=== PATIENT | male | born 1965 | race Caucasian/White ===

== ENCOUNTER 2017-04-11 07:52 | Emergency (ER) | payer OTHER ==
--- NOTE | 2017-04-11 08:41 | DIAGNOSTIC IMAGING REPORT ---
PROCEDURE: XR HAND 3 OR 4 VIEWS - LEFT INDICATION: Nail gun injury. TECHNIQUE: Four views. COMPARISON: None. FINDINGS: Osseous structures and joint spaces are normal. No evidence of fracture or radiopaque foreign body. IMPRESSION: 1. Negative left hand.
--- NOTE | 2017-04-11 08:43 | ED CLINICAL REPORT ---
Clinical Report - Physicians/Mid Levels [facility] [address] [place] [address] 04/11/2017 7:54 Patient: DANETTE DOMINGUEZ Time Seen: 07:59; initial patient contact. Arrived- By private vehicle. Historian- patient. HISTORY OF PRESENT ILLNESS Chief Complaint: Injury to the left hand. The injury happened yesterday. Occurred at home. The patient sustained a puncture wound from a nail. Patient is experiencing moderate pain. Patient denies injury to the head or neck. No other injury. REVIEW OF SYSTEMS The patient sustained a laceration. He has had swelling. No tingling, numbness, weakness or foreign body. All systems otherwise negative, except as recorded above. PAST HISTORY Sprain. Tetanus Status. Cellulitis. Dental Pain. Abscess. SURGERIES: Lumpectomy . The patient's dominant hand is the right. Last tetanus immunization was more than 5 years ago. SOCIAL HISTORY Current every day smoker. Regular alcohol use. No drug use. ADDITIONAL NOTES The nursing notes have been reviewed. PHYSICAL EXAM Vital Signs: 04/11/2017 08:00 BP: 137/87. HR: 84. RR: 18. O2 saturation: 95%. Temp: 98.8 F. Have been reviewed as normal. Skin: Skin warm and dry. Single deep crusted puncture wound with erythema and tenderness on the left hand. No increased warmth. Extremities: Dorsal left hand: mild erythema, tenderness and swelling and single puncture wound of the distal and radial aspect of the dorsal hand. Neurovascular intact distally. No deformity. No limitation of extension. No wrist injury. Hand and wrist exam otherwise negative. Extremities otherwise negative. Neuro, Vascular and Tendons: Vascular status intact. Sensation intact. Motor intact. Tendon function intact. Neuro: Oriented X 3. No motor deficit. No sensory deficit. LABS, X-RAYS, AND EKG Lt Hand X-ray: No fracture. Normal alignment. No bony lesion, air in the soft tissue or foreign body. Soft tissues normal. Views: AP, lateral and oblique. Technique: good. The X-rays were independently viewed by me and interpreted contemporaneously by me. Prior films were not available for comparison. Interpretation time: 08:43. PROGRESS AND PROCEDURES Disposition: Discharged home in good and improved condition. Condition: good. CLINICAL IMPRESSION Single deep puncture wound to the left hand. Delayed treatment. No puncture wound with foreign body present or infected puncture wound. Not penetrating into body cavity. INSTRUCTIONS Limit use of your left hand until better. Warnings: TETANUS: You were given a tetanus shot during your visit. Make a note for future reference. GENERAL WARNINGS: Return or contact your physician immediately if your condition worsens or changes unexpectedly, if not improving as expected, or if other problems arise. Specifically return if fever. Your Current Medications: CONTINUE TAKING THE FOLLOWING MEDICATIONS: Albuterol-Ipratropium Inhalation : 2 puffs TID. Hydrocodone-Acetaminophen Oral : Tablet 10-325 mg, 4x a day, prn. Ranitidine HCl Oral. Topamax Oral : 25mg TID. Prescription Medications: Cephalexin 500 mg: take 1 capsule orally every 6 hours for 7 days. No refill. Follow-up: Follow up with your doctor in about two days. Call for an appointment. Screening today revealed the patient's blood pressure to be in the pre-hypertensive range. The patient should follow up with a primary care provider for blood pressure management. (Electronically signed by Wang Lara Dr. 04/11/2017 8:49)
--- NOTE | 2017-04-11 08:43 | ED NURSING NOTES ---
Clinical Report - Nurses [facility] [address] [place] [address] 04/11/2017 7:54 Patient: DANETTE DOMINGUEZ TRIAGE Triage time 08:Apr 11 2017. Acuity: LEVEL 3. Chief Complaint: INJURY TO THE LEFT HAND. INJURY TO THE LEFT INDEX FINGER (knuckle puncture wound). GILBERT COMA SCORE: [place] Coma Scale: 15- eyes open spontaneously (4); best verbal response- oriented x 4 (5); best motor response- obeys commands (6). --08:04 Mounika Nolasco R.N. 08:00 04/11/17. BP: 137/87. HR: 84. RR: 18. O2 saturation: 95%. Temp: 98.8 F. Pain level now 03/08. --08:04 Mounika Nolasco R.N. Weight: 88.9 kg stated. Height/Length: 65 inches Per Patient. BMI: 32.7. --08:03 Mounika Nolasco R.N. Medications Albuterol-Ipratropium Inhalation 2 puffs TID . --08:03 Mounika Nolasco R.N. Hydrocodone-Acetaminophen Oral (Tablet 10-325 mg), 4x a day as needed. Ranitidine HCl Oral. Topamax Oral 25mg TID. --08:03 Mounika Nolasco R.N. Allergies Codeine. Darvon. --08:03 Mounika Nolasco R.N. History Arrived by private vehicle. Historian: patient. Accompanied by family. This occurred yesterday. Occurred at home. ( Was working and a nail grazed his knuckle after shooting off a knot in the wood from a nail gun.). No neck pain, weakness or numbness. 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 PAST MEDICAL HX: Tetanus status: unknown. SOCIAL HX: Heavy tobacco smoker- 1 pack per day. Regular alcohol use; consumes three beers a day. No drug use. SELF HARM ASSESSMENT: A self harm assessment was performed. The patient answered "no" to the question "Have you recently felt down, depressed, or hopeless?" and "Do you have thoughts of harming or killing yourself?". FALL RISK ASSESSMENT: Fall risk assessment completed. No fall risk identified. NUTRITIONAL RISK ASSESSMENT: The nutritional risk assessment revealed no deficiencies. FUNCTIONAL ASSESSMENT: Functional assessment: no impairments noted. LEARNING NEEDS ASSESSMENT: The learning needs assessment revealed no barriers. ABUSE ASSESSMENT: Abuse assessment: (yes) The patient was asked "Do you feel safe in your home?". SKIN INTEGRITY ASSESSMENT: Skin integrity risk assessment completed. No skin integrity risk identified. --08:04 Mounika Nolasco R.N. PROBLEMS: Sprain. Tetanus Status. Cellulitis. Dental Pain. Abscess. Immunizations. --08:03 Mounika Nolasco R.N. ADDITIONAL SURGERIES: Lumpectomy . --08:03 Mounika Nolasco R.N. Interventions ID band on patient. --08:04 Mounika Nolasco R.N. PHYSICAL ASSESSMENT Ambulatory to room. GENERAL / NEURO / PSYCH: Oriented X 4. Alert. Appears in no acute distress. EXTREMITIES: Capillary refill is less than 2 seconds in the extremities. Extremity pulses are within normal limits. Extremities exhibit normal ROM. Neuro-vascular status intact to the extremity. Left hand: erythema and single puncture wound. SKIN: Skin intact. Skin is warm and dry. --08:04 Mounika Nolasco R.N. NURSING PROGRESS NOTES The initial plan of care for this patient includes an assessment with efforts to address patient positioning and appropriate ambient lighting; impairment of the integumentary system. Reassurance given. Call light placed in reach. Side rails up x 1. Bed placed in lowest position. Brakes of bed on. --08:05 Mounika Nolasco R.N. 08:32 04/11/2017 Keflex (Cephalexin) PO Tablets 500 mg given. Allergies verified and confirmed 5 rights. --08:32 Mounika Nolasco R.N. 08:33 04/11/2017 [id number] PERTUSSIS IM 0.5 mL given. (Lot#: [id number], expiration date: 09/05/2018, Gse Mechanic: sanofi pasteur). Given in the right deltoid. Allergies verified and confirmed 5 rights. Vaccine information statement provided to the patient. --08:33 Mounika Nolasco R.N. 08:52 04/11/2017 Keflex PO Response: no adverse reaction. --08:52 Parminder Gutierrez R.N. 08:52 04/11/2017 [id number] PERTUSSIS IM Response: no adverse reaction. --08:52 Parminder Gutierrez R.N. DISPOSITION / DISCHARGE Departure time: 08:52. Condition at departure: stable. The goals identified in the patient's plan of care were met. No learning barriers present. Discharge instructions provided and reviewed with the patient. Reviewed medication(s) side effects, precautions, dosing and course information. Prescription(s) given to the patient (Danette verbalizes importance of finishing all prescribed antibiotic.). Activity restrictions (minimal use of injured extremity) reviewed. Work note given. Patient verbalized understanding. Written instructions provided in [place]ian. ( Danette verbalizes understanding of all d/c instructions including need to f/u with PCP in 2 days. He has no questions and voices no concerns at this time.). The patient was discharged by the physician. He was discharged home and unaccompanied at time of discharge. He left the Emergency Department ambulatory and via private vehicle. Patient driving. GILBERT COMA SCORE: [place] Coma Scale: 15- eyes open spontaneously (4); best verbal response- oriented x 4 (5); best motor response- obeys commands (6). --08:52 Parminder Gutierrez R.N. 08:50 04/11/17. BP: deferred. HR: deferred. RR: deferred. O2 saturation: deferred. Temp: deferred. Pain level now deferred. --08:52 Parminder Gutierrez R.N. Locked/Released at 04/11/2017 8:52 by Parminder Gutierrez R.N.
--- NOTE | 2017-04-11 08:43 | ED NURSING NOTES ---
Clinical Report - Nurses [facility] [address] [place] [address] 04/11/2017 7:54 Patient: DANETTE DOMINGUEZ TRIAGE Triage time 08:Apr 11 2017. Acuity: LEVEL 3. Chief Complaint: INJURY TO THE LEFT HAND. INJURY TO THE LEFT INDEX FINGER (knuckle puncture wound). GILBERT COMA SCORE: [place] Coma Scale: 15- eyes open spontaneously (4); best verbal response- oriented x 4 (5); best motor response- obeys commands (6). --08:04 Mounika Nolasco R.N. 08:00 04/11/17. BP: 137/87. HR: 84. RR: 18. O2 saturation: 95%. Temp: 98.8 F. Pain level now 03/08. --08:04 Mounika Nolasco R.N. Weight: 88.9 kg stated. Height/Length: 65 inches Per Patient. BMI: 32.7. --08:03 Mounika Nolasco R.N. Medications Albuterol-Ipratropium Inhalation 2 puffs TID . --08:03 Mounika Nolasco R.N. Hydrocodone-Acetaminophen Oral (Tablet 10-325 mg), 4x a day as needed. Ranitidine HCl Oral. Topamax Oral 25mg TID. --08:03 Mounika Nolasco R.N. Allergies Codeine. Darvon. --08:03 Mounika Nolasco R.N. History Arrived by private vehicle. Historian: patient. Accompanied by family. This occurred yesterday. Occurred at home. ( Was working and a nail grazed his knuckle after shooting off a knot in the wood from a nail gun.). No neck pain, weakness or numbness. 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 PAST MEDICAL HX: Tetanus status: unknown. SOCIAL HX: Heavy tobacco smoker- 1 pack per day. Regular alcohol use; consumes three beers a day. No drug use. SELF HARM ASSESSMENT: A self harm assessment was performed. The patient answered "no" to the question "Have you recently felt down, depressed, or hopeless?" and "Do you have thoughts of harming or killing yourself?". FALL RISK ASSESSMENT: Fall risk assessment completed. No fall risk identified. NUTRITIONAL RISK ASSESSMENT: The nutritional risk assessment revealed no deficiencies. FUNCTIONAL ASSESSMENT: Functional assessment: no impairments noted. LEARNING NEEDS ASSESSMENT: The learning needs assessment revealed no barriers. ABUSE ASSESSMENT: Abuse assessment: (yes) The patient was asked "Do you feel safe in your home?". SKIN INTEGRITY ASSESSMENT: Skin integrity risk assessment completed. No skin integrity risk identified. --08:04 Mounika Nolasco R.N. PROBLEMS: Sprain. Tetanus Status. Cellulitis. Dental Pain. Abscess. Immunizations. --08:03 Mounika Nolasco R.N. ADDITIONAL SURGERIES: Lumpectomy . --08:03 Mounika Nolasco R.N. Interventions ID band on patient. --08:04 Mounika Nolasco R.N. PHYSICAL ASSESSMENT Ambulatory to room. GENERAL / NEURO / PSYCH: Oriented X 4. Alert. Appears in no acute distress. EXTREMITIES: Capillary refill is less than 2 seconds in the extremities. Extremity pulses are within normal limits. Extremities exhibit normal ROM. Neuro-vascular status intact to the extremity. Left hand: erythema and single puncture wound. SKIN: Skin intact. Skin is warm and dry. --08:04 Mounika Nolasco R.N. NURSING PROGRESS NOTES The initial plan of care for this patient includes an assessment with efforts to address patient positioning and appropriate ambient lighting; impairment of the integumentary system. Reassurance given. Call light placed in reach. Side rails up x 1. Bed placed in lowest position. Brakes of bed on. --08:05 Mounika Nolasco R.N. 08:32 04/11/2017 Keflex (Cephalexin) PO Tablets 500 mg given. Allergies verified and confirmed 5 rights. --08:32 Mounika Nolasco R.N. 08:33 04/11/2017 [id number] PERTUSSIS IM 0.5 mL given. (Lot#: [id number], expiration date: 09/05/2018, Barrel Inspector: sanofi pasteur). Given in the right deltoid. Allergies verified and confirmed 5 rights. Vaccine information statement provided to the patient. --08:33 Mounika Nolasco R.N. 08:52 04/11/2017 Keflex PO Response: no adverse reaction. --08:52 Parminder Gutierrez R.N. 08:52 04/11/2017 [id number] PERTUSSIS IM Response: no adverse reaction. --08:52 Parminder Gutierrez R.N. DISPOSITION / DISCHARGE Departure time: 08:52. Condition at departure: stable. The goals identified in the patient's plan of care were met. No learning barriers present. Discharge instructions provided and reviewed with the patient. Reviewed medication(s) side effects, precautions, dosing and course information. Prescription(s) given to the patient (Danette verbalizes importance of finishing all prescribed antibiotic.). Activity restrictions (minimal use of injured extremity) reviewed. Work note given. Patient verbalized understanding. Written instructions provided in [place]ian. ( Danette verbalizes understanding of all d/c instructions including need to f/u with PCP in 2 days. He has no questions and voices no concerns at this time.). The patient was discharged by the physician. He was discharged home and unaccompanied at time of discharge. He left the Emergency Department ambulatory and via private vehicle. Patient driving. GILBERT COMA SCORE: [place] Coma Scale: 15- eyes open spontaneously (4); best verbal response- oriented x 4 (5); best motor response- obeys commands (6). --08:52 Parminder Gutierrez R.N. 08:50 04/11/17. BP: deferred. HR: deferred. RR: deferred. O2 saturation: deferred. Temp: deferred. Pain level now deferred. --08:52 Parminder Gutierrez R.N. Locked/Released at 04/11/2017 8:52 by Parminder Gutierrez R.N.
--- NOTE | 2017-04-11 08:44 | ED ORDER SUMMARY ---
..... Patient: DANETTE DOMINGUEZ OrderSheet [facility] VisitID: [id number] [address] [place] [address] 51y, M Registration Date/Time: 04/11/2017 ORDER SHEET Weight: 88.9 kg (stated) Allergies: Codeine, Darvon GENERAL ORDERS: Hand 3 or 4V Left Urgent (08:10 04/11/2017 Bre Parra) (Ack 8:12 Evette) (8:26 Evette) MEDICATION ORDERS: Wcosrki-Cthqht-Bydsc Pertussis IM 0.5 mL (NOW, per protocol) (08:19 04/11/2017 Bre Parra) (8:33 LWhalen R.N.) Keflex PO 500 mg (NOW) (08:20 04/11/2017 Bre Parra) (8:32 LWhalanuradha R.N.) IV FLUIDS: ORDER SHEET NOTES: [Electronically signed by Wang Lara Dr. (08:49 04/11/2017)] [Electronically signed by Parminder Gutierrez R.N. (08:52 04/11/2017)] [Electronically locked/signed by Parminder Gutierrez R.N. (08:52 04/11/2017)]
--- NOTE | 2017-04-11 08:44 | ED ORDER SUMMARY ---
..... Patient: DANETTE DOMINGUEZ OrderSheet [facility] VisitID: [id number] [address] [place] [address] 51y, M Registration Date/Time: 04/11/2017 ORDER SHEET Weight: 88.9 kg (stated) Allergies: Codeine, Darvon GENERAL ORDERS: Hand 3 or 4V Left Urgent (08:10 04/11/2017 Bre Parra) (Ack 8:12 Evette) (8:26 Evette) MEDICATION ORDERS: Qnphgxw-Qmihqk-Lamis Pertussis IM 0.5 mL (NOW, per protocol) (08:19 04/11/2017 Bre Parra) (8:33 LWhalen R.N.) Keflex PO 500 mg (NOW) (08:20 04/11/2017 Bre Parra) (8:32 LWhalanuradha R.N.) IV FLUIDS: ORDER SHEET NOTES: [Electronically signed by Wang Lara Dr. (08:49 04/11/2017)] [Electronically signed by Parminder Gutierrez R.N. (08:52 04/11/2017)] [Electronically locked/signed by Parminder Gutierrez R.N. (08:52 04/11/2017)]
--- NOTE | 2017-04-11 08:52 | ED MED RECONCILIATION SUMMARY ---
Patient: DANETTE DOMINGUEZ Medication Reconciliation Report [facility] VisitID: [id number] [address] [place] [address] 51y, M Registration Date/Time: 04/11/2017 Weight: 88.9 kg Height/Length: 65 in. BMI: 32.7 ALLERGIES: Codeine, Darvon The patient's Home Medications are listed below: CONTINUE TAKING THE FOLLOWING MEDICATIONS: Albuterol-Ipratropium Inhalation 2 puffs TID Hydrocodone-Acetaminophen Oral (10-325 mg), 4x a day Ranitidine HCl Oral Topamax Oral 25mg TID The source(s) of the original Home Medication information: Not obtained. The following Medications were given to the patient in the Emergency Department: Keflex [PO] PO 500 mg, administered: 04/11/2017 8:32:00 AM [id number] PERTUSSIS [IM] IM 0.5 mL, administered: 04/11/2017 8:33:00 AM The following Medications were prescribed to the patient: Cephalexin 500 mg: take 1 capsule orally every 6 hours for 7 days. No refill. -- Wang Lara Dr.
--- NOTE | 2017-04-11 08:52 | ED MAR SUMMARY ---
..... Medication Administration Record [facility] [address] [place] [address] Patient: DANETTE DOMINGUEZ Visit ID: [id number] 51y, M Weight: 88.9 kg Height/Length: 65 in BMI: 32.7 ALLERGIES: Codeine, Darvon Given 08:32 04/11/2017 Mounika Nolasco, RDomN. Medication Administered: KEFLEX [PO] (CEPHALEXIN), Dose: 500 mg Tablets PO. Medication Ordered: Keflex PO 500 mg (NOW). Given 08:33 04/11/2017 Mounika Nolasco, R.N. Medication Administered: WZDHJCC-CTRBIV-MPNNX PERTUSSIS [IM], Dose: 0.5 mL IM. Medication Ordered: Izprhte-Wgjxgr-Cklwr Pertussis IM 0.5 mL (NOW, per protocol).
--- NOTE | 2017-04-11 08:52 | ED DISCHARGE INSTRUCTIONS ---
Patient: DANETTE DOMINGUEZ General Instructions [facility] VisitID: [id number] [place] [address] 51y, M Registration Date/Time: 04/11/2017 Single deep puncture wound to the left hand. Delayed treatment. No puncture wound with foreign body present or infected puncture wound. Not penetrating into body cavity. INSTRUCTIONS Limit use of your left hand until better. Warnings: TETANUS: You were given a tetanus shot during your visit. Make a note for future reference. GENERAL WARNINGS: Return or contact your physician immediately if your condition worsens or changes unexpectedly, if not improving as expected, or if other problems arise. Specifically return if fever. Your Current Medications: CONTINUE TAKING THE FOLLOWING MEDICATIONS: Albuterol-Ipratropium Inhalation : 2 puffs TID. Hydrocodone-Acetaminophen Oral : Tablet 10-325 mg, 4x a day, prn. Ranitidine HCl Oral. Topamax Oral : 25mg TID. Prescription Medications: Cephalexin 500 mg: take 1 capsule orally every 6 hours for 7 days. No refill. Follow-up: Follow up with your doctor in about two days. Call for an appointment. Screening today revealed the patient's blood pressure to be in the pre-hypertensive range. The patient should follow up with a primary care provider for blood pressure management. ADDITIONAL INFORMATION Puncture Wound (General) A puncture wound is a hole through the skin. Bacteria, dirt and debris can be drawn into this wound, increasing the risk of infection. However, antibiotics are usually not prescribed for this injury unless signs of infection are already present. Therefore, it is important to observe the wound closely for the signs of infection listed below. Home Care: If your wound is on an arm, hand, leg, or foot, keep that part raised during the first 48 hours to reduce swelling and pain. Keep the wound clean and dry. If a bandage was applied and it becomes wet or dirty, replace it. Otherwise, leave it in place for the next 24 hours. You may use acetaminophen (Tylenol) or ibuprofen (Motrin, Advil) to control pain, unless another medicine was prescribed. [NOTE: If you have chronic liver or kidney disease or ever had a stomach ulcer or GI bleeding, talk with your doctor before using these medicines.] You may shower as usual. However, do not soak the area in water (no baths or swimming) during the first 48 hours. Follow Up: Most puncture wounds heal within 10 days. However, an infection may sometimes occur despite proper treatment. If small particles were drawn into the puncture wound (such as fragments of cloth, rubber, wood or dirt), an infection may occur. These fragments are very hard to find during the first exam since it is not possible to get a good look inside a puncture wound and they do not show on an X-ray. Antibiotics and a minor surgical procedure to find and remove the foreign object will be needed if this happens. Therefore, check the wound daily for the warning signs listed below. Get Prompt Medical Attention if any of the following occur: SIGNS OF INFECTION: Increasing pain in the wound Redness, swelling, pus or red lines coming from the wound Fever of 100.4F (38C) or higher, or as directed by your healthcare provider Diphtheria Toxoid Adsorbed, Pertussis Vaccine, Acellular (Adsorbed), Tetanus Toxoid, Adsorbed Suspension for injection What is this medicine? DIPHTHERIA and TETANUS TOXOIDS; PERTUSSIS VACCINE (dif THEER ee uh and TET n us TOK soids; per JAIME mary SEEN) is used to prevent diphtheria, tetanus, and pertussis infections. How should I use this medicine? This vaccine is for injection into a muscle. It is given by a health rn wound care. A copy of Vaccine Information Statements will be given before each vaccination. Read this sheet carefully each time. The sheet may change frequently. Talk to your winder operator regarding the use of this vaccine in children. While the DTP vaccine may be given to children ages 6 weeks to 7 years and the Tdap vaccine may be given to children at least 10 years old, precautions do apply. What side effects may I notice from receiving this medicine? Side effects that you should report to your doctor or health rn wound care as soon as possible: allergic reactions like skin rash, itching or hives, swelling of the face, lips, or tongue breathing problems fever of 103 degrees F or more flu-like symptoms inconsolable crying infection pain, tingling, numbness in the hands or feet seizures swelling of arm or leg that was injected unusually weak or tired Side effects that usually do not require immediate medical attention (report these side effects to your doctor or health rn wound care if they continue or are bothersome): fussy, irritable loss of appetite fever of 102 degrees F or less pain, tenderness, redness, swelling, or a 'knot' at site where injected vomiting What may interact with this medicine? immune globulin medicines that suppress your immune function like adalimumab, anakinra, infliximab medicines to treat cancer medicines that treat or prevent blood clots like warfarin, enoxaparin, and dalteparin steroid medicines like prednisone or cortisone What if I miss a dose? It is important not to miss your dose. Call your doctor or health rn wound care if you are unable to keep an appointment. Where should I keep my medicine? This drug is given in a hospital or clinic and will not be stored at home. What should I tell my health care provider before I take this medicine? They need to know if you have any of these conditions: blood disorders like hemophilia fever or infection immune system problems neurologic disease seizures an unusual or allergic reaction to vaccines, thimerosal, latex, other medicines, foods, dyes, or preservatives or trying to get breast-feeding What should I watch for while using this medicine? See your health care provider for all shots of this vaccine as directed. To have protection from infection, you must have 3 shots of this vaccine plus boosters as needed. Tell your doctor right away if you have any serious or unusual side effects after getting this vaccine. Cephalexin Monohydrate Oral tablet What is this medicine? CEPHALEXIN (sef a YONATAN in) is a cephalosporin antibiotic. It is used to treat certain kinds of bacterial infections It will not work for colds, flu, or other viral infections. How should I use this medicine? Take this medicine by mouth with a full glass of water. Follow the directions on the prescription label. This medicine can be taken with or without food. Take your medicine at regular intervals. Do not take your medicine more often than directed. Take all of your medicine as directed even if you think you are better. Do not skip doses or stop your medicine early. Talk to your winder operator regarding the use of this medicine in children. While this drug may be prescribed for selected conditions, precautions do apply. What side effects may I notice from receiving this medicine? Side effects that you should report to your doctor or health rn wound care as soon as possible: allergic reactions like skin rash, itching or hives, swelling of the face, lips, or tongue breathing problems pain or trouble passing urine redness, blistering, peeling or loosening of the skin, including inside the mouth severe or watery diarrhea unusually weak or tired yellowing of the eyes, skin Side effects that usually do not require medical attention (report to your doctor or health rn wound care if they continue or are bothersome): gas or heartburn genital or anal irritation headache joint or muscle pain nausea, vomiting What may interact with this medicine? probenecid some other antibiotics What if I miss a dose? If you miss a dose, take it as soon as you can. If it is almost time for your next dose, take only that dose. Do not take double or extra doses. There should be at least 4 to 6 hours between doses. Where should I keep my medicine? Keep out of the reach of children. Store at room temperature between 59 and 86 degrees F (15 and 30 degrees C). Throw away any unused medicine after the expiration date. What should I tell my health care provider before I take this medicine? They need to know if you have any of these conditions: kidney disease stomach or intestine problems, especially colitis an unusual or allergic reaction to cephalexin, other cephalosporins, penicillins, other antibiotics, medicines, foods, dyes or preservatives or trying to get breast-feeding What should I watch for while using this medicine? Tell your doctor or health rn wound care if your symptoms do not begin to improve in a few days. Do not treat diarrhea with over the counter products. Contact your doctor if you have diarrhea that lasts more than 2 days or if it is severe and watery. If you have diabetes, you may get a false-positive result for sugar in your urine. Check with your doctor or health rn wound care. You have been given the following additional information: Puncture Wound, General Diphtheria Toxoid Adsorbed, Pertussis Vaccine, Acellular (Adsorbed), Tetanus Toxoid, Adsorbed Suspension for injection Cephalexin Monohydrate Oral tablet Limit use of your left hand until better. (Electronically signed by Wang Lara Dr. 04/11/2017 8:49)
--- NOTE | 2017-04-11 08:52 | ED MAR SUMMARY ---
..... Medication Administration Record [facility] [address] [place] [address] Patient: DANETTE DOMINGUEZ Visit ID: [id number] 51y, M Weight: 88.9 kg Height/Length: 65 in BMI: 32.7 ALLERGIES: Codeine, Darvon Given 08:32 04/11/2017 Mounika Nolasco, RDomN. Medication Administered: KEFLEX [PO] (CEPHALEXIN), Dose: 500 mg Tablets PO. Medication Ordered: Keflex PO 500 mg (NOW). Given 08:33 04/11/2017 Mounika Nolasco, R.N. Medication Administered: [id number] PERTUSSIS [IM], Dose: 0.5 mL IM. Medication Ordered: Evxnpfi-Ecngna-Umskm Pertussis IM 0.5 mL (NOW, per protocol).
--- NOTE | 2017-04-11 08:52 | ED MED RECONCILIATION SUMMARY ---
Patient: DANETTE DOMINGUEZ Medication Reconciliation Report [facility] VisitID: [id number] [address] [place] [address] 51y, M Registration Date/Time: 04/11/2017 Weight: 88.9 kg Height/Length: 65 in. BMI: 32.7 ALLERGIES: Codeine, Darvon The patient's Home Medications are listed below: CONTINUE TAKING THE FOLLOWING MEDICATIONS: Albuterol-Ipratropium Inhalation 2 puffs TID Hydrocodone-Acetaminophen Oral (10-325 mg), 4x a day Ranitidine HCl Oral Topamax Oral 25mg TID The source(s) of the original Home Medication information: Not obtained. The following Medications were given to the patient in the Emergency Department: Keflex [PO] PO 500 mg, administered: 04/11/2017 8:32:00 AM [id number] PERTUSSIS [IM] IM 0.5 mL, administered: 04/11/2017 8:33:00 AM The following Medications were prescribed to the patient: Cephalexin 500 mg: take 1 capsule orally every 6 hours for 7 days. No refill. -- Wang Lara Dr.
--- NOTE | 2017-04-11 08:52 | ED DISCHARGE INSTRUCTIONS ---
Patient: DANETTE DOMINGUEZ General Instructions [facility] VisitID: [id number] [place] [address] 51y, M Registration Date/Time: 04/11/2017 Single deep puncture wound to the left hand. Delayed treatment. No puncture wound with foreign body present or infected puncture wound. Not penetrating into body cavity. INSTRUCTIONS Limit use of your left hand until better. Warnings: TETANUS: You were given a tetanus shot during your visit. Make a note for future reference. GENERAL WARNINGS: Return or contact your physician immediately if your condition worsens or changes unexpectedly, if not improving as expected, or if other problems arise. Specifically return if fever. Your Current Medications: CONTINUE TAKING THE FOLLOWING MEDICATIONS: Albuterol-Ipratropium Inhalation : 2 puffs TID. Hydrocodone-Acetaminophen Oral : Tablet 10-325 mg, 4x a day, prn. Ranitidine HCl Oral. Topamax Oral : 25mg TID. Prescription Medications: Cephalexin 500 mg: take 1 capsule orally every 6 hours for 7 days. No refill. Follow-up: Follow up with your doctor in about two days. Call for an appointment. Screening today revealed the patient's blood pressure to be in the pre-hypertensive range. The patient should follow up with a primary care provider for blood pressure management. ADDITIONAL INFORMATION Puncture Wound (General) A puncture wound is a hole through the skin. Bacteria, dirt and debris can be drawn into this wound, increasing the risk of infection. However, antibiotics are usually not prescribed for this injury unless signs of infection are already present. Therefore, it is important to observe the wound closely for the signs of infection listed below. Home Care: If your wound is on an arm, hand, leg, or foot, keep that part raised during the first 48 hours to reduce swelling and pain. Keep the wound clean and dry. If a bandage was applied and it becomes wet or dirty, replace it. Otherwise, leave it in place for the next 24 hours. You may use acetaminophen (Tylenol) or ibuprofen (Motrin, Advil) to control pain, unless another medicine was prescribed. [NOTE: If you have chronic liver or kidney disease or ever had a stomach ulcer or GI bleeding, talk with your doctor before using these medicines.] You may shower as usual. However, do not soak the area in water (no baths or swimming) during the first 48 hours. Follow Up: Most puncture wounds heal within 10 days. However, an infection may sometimes occur despite proper treatment. If small particles were drawn into the puncture wound (such as fragments of cloth, rubber, wood or dirt), an infection may occur. These fragments are very hard to find during the first exam since it is not possible to get a good look inside a puncture wound and they do not show on an X-ray. Antibiotics and a minor surgical procedure to find and remove the foreign object will be needed if this happens. Therefore, check the wound daily for the warning signs listed below. Get Prompt Medical Attention if any of the following occur: SIGNS OF INFECTION: Increasing pain in the wound Redness, swelling, pus or red lines coming from the wound Fever of 100.4F (38C) or higher, or as directed by your healthcare provider Diphtheria Toxoid Adsorbed, Pertussis Vaccine, Acellular (Adsorbed), Tetanus Toxoid, Adsorbed Suspension for injection What is this medicine? DIPHTHERIA and TETANUS TOXOIDS; PERTUSSIS VACCINE (dif THEER ee uh and TET n us TOK soids; per JAIME mary SEEN) is used to prevent diphtheria, tetanus, and pertussis infections. How should I use this medicine? This vaccine is for injection into a muscle. It is given by a health customer care professional. A copy of Vaccine Information Statements will be given before each vaccination. Read this sheet carefully each time. The sheet may change frequently. Talk to your scroll shear operator regarding the use of this vaccine in children. While the DTP vaccine may be given to children ages 6 weeks to 7 years and the Tdap vaccine may be given to children at least 10 years old, precautions do apply. What side effects may I notice from receiving this medicine? Side effects that you should report to your doctor or health customer care professional as soon as possible: allergic reactions like skin rash, itching or hives, swelling of the face, lips, or tongue breathing problems fever of 103 degrees F or more flu-like symptoms inconsolable crying infection pain, tingling, numbness in the hands or feet seizures swelling of arm or leg that was injected unusually weak or tired Side effects that usually do not require immediate medical attention (report these side effects to your doctor or health customer care professional if they continue or are bothersome): fussy, irritable loss of appetite fever of 102 degrees F or less pain, tenderness, redness, swelling, or a 'knot' at site where injected vomiting What may interact with this medicine? immune globulin medicines that suppress your immune function like adalimumab, anakinra, infliximab medicines to treat cancer medicines that treat or prevent blood clots like warfarin, enoxaparin, and dalteparin steroid medicines like prednisone or cortisone What if I miss a dose? It is important not to miss your dose. Call your doctor or health customer care professional if you are unable to keep an appointment. Where should I keep my medicine? This drug is given in a hospital or clinic and will not be stored at home. What should I tell my health care provider before I take this medicine? They need to know if you have any of these conditions: blood disorders like hemophilia fever or infection immune system problems neurologic disease seizures an unusual or allergic reaction to vaccines, thimerosal, latex, other medicines, foods, dyes, or preservatives or trying to get breast-feeding What should I watch for while using this medicine? See your health care provider for all shots of this vaccine as directed. To have protection from infection, you must have 3 shots of this vaccine plus boosters as needed. Tell your doctor right away if you have any serious or unusual side effects after getting this vaccine. Cephalexin Monohydrate Oral tablet What is this medicine? CEPHALEXIN (sef a YONATAN in) is a cephalosporin antibiotic. It is used to treat certain kinds of bacterial infections It will not work for colds, flu, or other viral infections. How should I use this medicine? Take this medicine by mouth with a full glass of water. Follow the directions on the prescription label. This medicine can be taken with or without food. Take your medicine at regular intervals. Do not take your medicine more often than directed. Take all of your medicine as directed even if you think you are better. Do not skip doses or stop your medicine early. Talk to your scroll shear operator regarding the use of this medicine in children. While this drug may be prescribed for selected conditions, precautions do apply. What side effects may I notice from receiving this medicine? Side effects that you should report to your doctor or health customer care professional as soon as possible: allergic reactions like skin rash, itching or hives, swelling of the face, lips, or tongue breathing problems pain or trouble passing urine redness, blistering, peeling or loosening of the skin, including inside the mouth severe or watery diarrhea unusually weak or tired yellowing of the eyes, skin Side effects that usually do not require medical attention (report to your doctor or health customer care professional if they continue or are bothersome): gas or heartburn genital or anal irritation headache joint or muscle pain nausea, vomiting What may interact with this medicine? probenecid some other antibiotics What if I miss a dose? If you miss a dose, take it as soon as you can. If it is almost time for your next dose, take only that dose. Do not take double or extra doses. There should be at least 4 to 6 hours between doses. Where should I keep my medicine? Keep out of the reach of children. Store at room temperature between 59 and 86 degrees F (15 and 30 degrees C). Throw away any unused medicine after the expiration date. What should I tell my health care provider before I take this medicine? They need to know if you have any of these conditions: kidney disease stomach or intestine problems, especially colitis an unusual or allergic reaction to cephalexin, other cephalosporins, penicillins, other antibiotics, medicines, foods, dyes or preservatives or trying to get breast-feeding What should I watch for while using this medicine? Tell your doctor or health customer care professional if your symptoms do not begin to improve in a few days. Do not treat diarrhea with over the counter products. Contact your doctor if you have diarrhea that lasts more than 2 days or if it is severe and watery. If you have diabetes, you may get a false-positive result for sugar in your urine. Check with your doctor or health customer care professional. You have been given the following additional information: Puncture Wound, General Diphtheria Toxoid Adsorbed, Pertussis Vaccine, Acellular (Adsorbed), Tetanus Toxoid, Adsorbed Suspension for injection Cephalexin Monohydrate Oral tablet Limit use of your left hand until better. (Electronically signed by Wang Lara Dr. 04/11/2017 8:49)
== END 2017-04-11 08:53 | disposition home or self-care (01) ==
LOC: ED SRH 07:52
DX: S61.432A Puncture wound without foreign body of left hand, initial encounter (principal); W29.4XXA Contact with nail gun, initial encounter; Y93.89 Activity, other specified; Y92.009 Unspecified place in unspecified non-institutional (private) residence as the place of occurrence of the external cause; Y99.8 Other external cause status; F17.210 Nicotine dependence, cigarettes, uncomplicated